=== PATIENT | female | born 1960 | race Hispanic/Latino ===

== ENCOUNTER 2016-11-01 09:27 | Outpatient (CLI) | payer MEDICARE ==
--- NOTE | 2016-11-01 11:14 | Ultrasound Report ---
Bilateral diagnostic mammogram followed by sonogram right breast and spot magnification of calcifications right breast and asymmetric density outer anterior left breast: History: Suspected lumps right breast Findings: Predominance adipose tissue bilaterally. There is cluster of linear calcifications noted at the mid right breast. The asymmetric density outer left breast. Subareolar 3 mm density right breast. Spot magnification view reveals probably benign calcifications right mid breast. Effacement of asymmetric density left breast without mass. Sonographic examination of right breast reveals a 0.5 x 0.3 cm complex cyst subareolar area right breast. Appears to correspond to the density on the mammogram. Impression: Probably benign calcifications right breast. Probably benign cyst subareolar area right breast. Recommend 6 month followup with right mammogram and sonogram subareolar right breast. BI-RADS CATEGORY: 3 = Probably benign ACR BI-RADS MAMMOGRAPHIC CODES: 0 = Needs additional imaging evaluation; 1 = Negative; 2 = Benign; 3 = Probably benign; 4 = Suspicious; 5 = Malignant; 6 = Known biopsy-proven malignancy COMMENT: 1. Dense breast tissue, i.e., adenosis, fibrocystic changes, etc., may obscure an underlying neoplasm. 2. Approximately 10% of cancers are not detected with mammography. 3. A negative mammography report should not delay biopsy if a clinically suspicious mass is present. COMMENT: Patient follow-up letters are generated in [employer].
== END 2016-11-01 09:28 | disposition home or self-care (01) ==
LOC: MAMMO 09:27
PROVIDERS: ATTEND Internal Medicine
DX: N60.01 Solitary cyst of right breast (principal); N63 Unspecified lump in breast; R92.1 Mammographic calcification found on diagnostic imaging of breast
CPT/HCPCS: 76641; G0204; 77066

== ENCOUNTER 2017-04-25 10:34 | Outpatient (CLI) | payer MEDICARE ==
--- NOTE | 2017-04-25 12:37 | Ultrasound Report ---
RIGHT BREAST ULTRASOUND: 04/25/17 10:34:00 CLINICAL: Six month followup of a probable benign cyst. COMPARISON: 11/01/16 FINDINGS: Ultrasound the right breast demonstrated an oval slightly irregular subareolar cyst as described on the prior exam. It measures 8 x 4 x 7 mm and has benign features. The cyst has minimal internal echoes. IMPRESSION: Benign subareolar cyst right breast. BI-RADS 2 - - Benign RECOMMENDATION: Return to routine mammographic screening.
--- NOTE | 2017-04-25 13:30 | Mammography Report ---
RIGHT DIGITAL DIAGNOSTIC MAMMOGRAM with CAD: 04/25/17 10:34:00 CLINICAL: Follow-up subareolar cyst and separate calcifications.. COMPARISON:Same day right breast ultrasound and mammogram and ultrasound from 11/01/16 FINDINGS: The breast is almost entirely fatty. The previous described right periareolar circumscribed density is slightly larger but it correlates with an 8mm benign cyst identified on today's ultrasound. Clustered calcifications at 6 o'clock are stable. IMPRESSION: Benign right subareolar cyst and probably benign calcifications at 6 o'clock. BI-RADS CATEGORY: 3 - - Probably Benign RECOMMENDATION: Six month followup mammogram with magnification views of the right breast calcifications. ACR BI-RADS MAMMOGRAPHIC CODES: 0 = Needs additional imaging evaluation; 1 = Negative; 2 = Benign; 3 = Probably benign; 4 = Suspicious; 5 = Malignant; 6 = Known biopsy-proven malignancy COMMENT: 1. Dense breast tissue, i.e., adenosis, fibrocystic changes, etc., may obscure an underlying neoplasm. 2. Approximately 10% of cancers are not detected with mammography. 3. A negative mammography report should not delay biopsy if a clinically suspicious mass is present. COMMENT: Patient follow-up letters are generated by our [employer] application.
== END 2017-04-25 10:35 | disposition home or self-care (01) ==
LOC: MAMMO 10:34
PROVIDERS: ATTEND Internal Medicine
DX: N60.01 Solitary cyst of right breast (principal); R92.1 Mammographic calcification found on diagnostic imaging of breast
CPT/HCPCS: 76642; G0206

== ENCOUNTER 2021-03-04 00:37 | Emergency (ER) | payer MEDICARE ==
--- NOTE | 2021-03-04 00:59 | Event Note ---
ED Screening Note Date of service: 03/04/21 Time: 00:55 ED Screening Note: The patient is a 60-year-old female sent from [facility] for vaginal bleeding. Patient has history of schizophrenia, bipolar disorder, depression and hypertension. The patient reports she has cycles every month which lasts approximately 10 days. Patient denies complaints This initial assessment/diagnostic orders/clinical plan/treatment(s) is/are subject to change based on patients health status, clinical progression and re- assessment by fellow clinical providers in the ED. Further treatment and workup at subsequent clinical providers discretion. Patient/guardian urged not to elope from the ED as their condition may be serious if not clinically assessed and managed. Initial orders include: CBC, BMP, PT/PTT/INR/serum hCG, pelvic ultrasound
[2021-03-04 01:23] LABS: Basophils % (Auto) 0.4 % (0.0-1.8); Eosinophils # (Auto) 0.3 K/mm3 (0.0-0.4); Eosinophils % (Auto) 3.3 % (0.0-4.3); Hematocrit 39.8 % (30.3-42.9); Hemoglobin 13.6 gm/dl (10.1-14.3); Lymphocytes # (Auto) 2.4 K/mm3 (1.2-5.4); Lymphocytes % (Auto) 26.4 % (13.4-35.0); Mean Corpuscular HGB Conc 34 % (30-34); Mean Corpuscular Volume 93 fl (79-97); Monocytes # (Auto) 0.8 K/mm3 (0.0-0.8); Monocytes % (Auto) 9.3 % (0.0-7.3); Platelet Count 257 K/mm3 (140-440); Red Blood Count 4.27 M/mm3 (3.65-5.03); Red Cell Distribution Width 12.8 % (13.2-15.2)
[2021-03-04 01:49] LABS: INR 0.96 (0.87-1.13)
[2021-03-04 01:50] LABS: Partial Thromboplastin Time 36.8 Sec. (24.2-36.6)
[2021-03-04 02:15] LABS: BUN/Creatinine Ratio 18; Blood Urea Nitrogen 14 mg/dL (7-17); Calcium 9.8 mg/dL (8.4-10.2); Hemolysis Index 24
--- NOTE | 2021-03-04 02:30 | Emergency Department Report ---
ED Female HPI - General Stated complaint: VAGINAL BLEEDING Time Seen by Provider: 03/04/21 01:35 - History of Present Illness Initial comments: Patient presented by ambulance secondary to vaginal bleeding. She was sent in from senior care because of this. Patient states that she does not know why she was sent in. She states that she has vaginal bleeding once a month. This is not any heavier than usual. This was not any slip laster than usual. This was nothing new. She states she occasionally gets some abdominal cramps with it. These have not been bad. She states that she does not think she is . There is some question as to whether or not the bleeding is perceived or real. Patient has a history of psychiatric disease and a history of delusion. Regardless, patient states that she is not suicidal or homicidal. She states that she really does not know why she was sent here. - Related Data Allergies Allergy/AdvReac Type Severity Reaction Status Date / Time No Known Allergies Allergy Unverified 04/30/13 08:36 ED Review of Systems ROS: Stated complaint: VAGINAL BLEEDING Other details as noted in HPI Comment: All other systems reviewed and negative Constitutional: denies: fever Eyes: denies: vision change ENT: denies: throat pain Respiratory: denies: cough Cardiovascular: denies: chest pain Endocrine: denies: unexplained weight loss Genitourinary: as per HPI Musculoskeletal: denies: back pain Skin: denies: rash Neurological: denies: headache Hematological/Lymphatic: denies: easy bruising ED Past Medical Hx - Past Medical History Previous Medical History?: Yes Hx Psychiatric Treatment: Yes (Schizophrenia versus psychosis) - Family History Family history: no significant ED Physical Exam - General Limitations: No Limitations, Other (Pulse ox noted and normal) General appearance: alert, in no apparent distress - Head Head exam: Present: atraumatic, normocephalic, normal inspection - Eye Eye exam: Present: normal appearance, EOMI. Absent: scleral icterus - ENT ENT exam: Present: normal exam, normal orophraynx - Neck Neck exam: Present: normal inspection. Absent: meningismus - Respiratory Respiratory exam: Present: normal lung sounds bilaterally. Absent: respiratory distress - Cardiovascular Cardiovascular Exam: Present: regular rate, normal rhythm - GI/Abdominal GI/Abdominal exam: Present: soft. Absent: distended, tenderness - Rectal Rectal exam: Present: deferred (By the patient) - Extremities Exam Extremities exam: Present: normal capillary refill. Absent: calf tenderness - Back Exam Back exam: Absent: CVA tenderness (R), CVA tenderness (L) - Neurological Exam Neurological exam: Present: alert, oriented X3, CN II-XII intact. Absent: motor sensory deficit - Psychiatric Psychiatric exam: Present: normal affect, normal mood - Skin Skin exam: Present: warm, dry ED Course - Reevaluation(s) Reevaluation #1: 03/04/21 02:29 EMS have been met. Labs have been ordered. Labs are noted. At this time, patient was discharged. ED Medical Decision Making - Lab Data Result diagrams: 03/04/21 01:00 03/04/21 01:00 - Medical Decision Making Patient presents from a senior care secondary to vaginal bleeding. She has declined a pelvic exam. She states that she would rather follow-up with gynecology. Patient was referred to [facility] for follow-up. She does not appear to be septic or toxic. There is no bleeding disorder noted. She does not have bruising all over the place her petechiae or purpura. Platelets are normal. She is not anemic. She does not require further evaluation at this time. She has declined pelvic exam and that was certainly her choice and she has the capacity to make this decision. Critical Care Time: No Critical care attestation.: If time is entered above; I have spent that time in minutes in the direct care of this critically ill patient, excluding procedure time. ED Disposition Clinical Impression: Vaginal bleeding Disposition: 01 HOME / SELF CARE / HOMELESS Is pt being admited?: No Condition: Stable Instructions: Abnormal Uterine Bleeding Additional Instructions: Plenty water. Follow-up with your child specialist. If you do not have a child specialist, follow-up with the referral child specialist. Return for problems. Continue home medication. Referrals: [facility] [Referring] - 3-5 Days OMAR MELGOZA MD [Staff Physician] - 3-5 Days
[2021-03-04 10:49] VITALS: BP 106/46
== END 2021-03-04 11:00 | disposition home or self-care (01) ==
LOC: ED 00:37
DX: N93.9 Abnormal uterine and vaginal bleeding, unspecified (principal); F20.9 Schizophrenia, unspecified
CPT/HCPCS: 36415; 76856; 80048; 84703; 85025; 85610; 85730; 99283; 99284